=== PATIENT | male | born 1945 | race Caucasian/White ===

== ENCOUNTER 2017-01-08 06:51 | Day surgery (SDC) | payer MEDICARE, OTHER ==
[2017-01-05 12:21] VITALS: BMI 27.3
[~2017-01-08 06:51] MED LIST: LACTATED RINGERS 1,000 ML IV SCH
[2017-01-08 07:06] VITALS: TEMP 98
[2017-01-08] MEDS ORDERED: PROPOFOL 10 MG/ML 20 ML VIAL IV ONE (07:28)
--- NOTE | 2017-01-08 07:59 | P.OP ---
Date of Procedure: 01/08/17 Preoperative Diagnosis: Screening. Personal history of colon polyps tubular adenomas. Postoperative Diagnosis: Splenic flexure polyp. Moderate diverticulosis Procedure(s) Performed: Colonoscopy and snare polypectomy Implants: Anesthesia: MAC Surgeon: Jonathon Bustos Estimated Blood Loss (ml): 0 Pathology: other (Colon polyp) Condition: stable Disposition: same day Indications for Procedure: The patient is a 71-year-old white male who has a history of colon polyps over 10 years ago when his had his last colonoscopy. Otherwise asymptomatic. Follow -up was recommended. Informed consent was obtained. Operative Findings: Splenic flexure polyp about 3 mm in diameter. Moderate diverticulosis. Description of Procedure: With the patient in the left lateral position rectal digital examination was normal there were no palpable masses. No prostatic masses. The video colonoscope was inserted transanally and advanced all the way to the cecum which was entered without visualized. The mucosa were thoroughly examined. Findings there was a splenic flexure polyp sessile about 3-4 mm in diameter. This was removed completely with the snare cautery with good hemostasis. 2 moderate diverticulosis uncomplicated. The patient tolerated the procedure well without any evident complication. Recommendation high fiber diet the. Advised to chew his food well. Follow-up colonoscopy in about the 5 years. May resume his home meds. Position home.
[2017-01-08 08:13] VITALS: BP 157/72; PULSE 48; RESP 16
== END 2017-01-08 08:34 | disposition home or self-care (01) ==
LOC: ORWHC2ENDO 06:51
PROVIDERS: ATTEND Surgery
DX: Z12.11 Encounter for screening for malignant neoplasm of colon (principal); D12.3 Benign neoplasm of transverse colon; K57.30 Diverticulosis of large intestine without perforation or abscess without bleeding; Z86.010 Personal history of colon polyps; I10 Essential (primary) hypertension; E78.5 Hyperlipidemia, unspecified; K21.9 Gastro-esophageal reflux disease without esophagitis; F32.9 Major depressive disorder, single episode, unspecified; I25.10 Atherosclerotic heart disease of native coronary artery without angina pectoris; M19.90 Unspecified osteoarthritis, unspecified site; J44.9 Chronic obstructive pulmonary disease, unspecified; G47.30 Sleep apnea, unspecified; Z79.82 Long term (current) use of aspirin; Z79.1 Long term (current) use of non-steroidal anti-inflammatories (NSAID); Z79.899 Other long term (current) drug therapy
CPT/HCPCS: 88305; 45385; J2704

== ENCOUNTER → 2019-08-20 | Outpatient (CLI) | payer MEDICARE ==
--- NOTE | 2019-08-20 12:53 | CONS ---
CONSULTATION DATE OF SERVICE: 08/20/2019 A 74-year-old gentleman who has been re-evaluated in Sleep Center for treatment of obstructive sleep apnea-hypopnea syndrome. HISTORY OF PRESENT ILLNESS/SLEEP-WAKE EVALUATION: Patient has been diagnosed with obstructive sleep apnea about 15 years ago. Since that time, he is on treatment with CPAP. He continues to use CPAP equipment every night for the whole night. His machine is old. Sometimes he wakes up from sleep with nocturia in the morning. He wakes up tired. He may take one nap at 2 pm and that is with 4 or 5 caffeinated beverages which he drinks. No history of hypnagogic hallucinations, sleep paralysis or cataplexy. His usual sleep schedule from 10 p.m. to 6 am basically 7 days a week and no problem with falling asleep. No TV in bedroom. [place] Sleepiness Scale is 7. 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 PAST SURGICAL HISTORY: Right and left knee arthroscopy, umbilical hernia repair in 2000, left rotator cuff repair 2008, SLA repair in 2009. MEDICATIONS: Atenolol, atorvastatin, omeprazole, sertraline, lisinopril, multivitamins. SOCIAL HISTORY: Positive history of smoking on and off for about 50 years, quit smoking in March of 2019. Before quit smoking he decrease amount of cigarettes down to 1 pack a week. Alcohol consumption occasional. FAMILY HISTORY: Arthritis, snoring. REVIEW OF SYSTEMS: Tiredness and sleepiness during the day, even while using his CPAP equipment, taking naps. During physical exam, gentleman without distress, BP 147/71, HR 52, RR 16, height 5 foot 7-1/2 inches, weight 188 pounds. Body mass index 29.0, temperature 97.1, oxygen saturation at room air 98%. OROPHARYNX: Short distance between soft palate and posterior pharyngeal wall of wide pillars. Some restriction of nasal breathing. NECK: Supple, no JVD. Thyroid is not palpable. LUNGS: Clear to percussion and to auscultation. Good air exchange. No wheezing or rhonchi. HEART: S1, S2 regular. No murmurs, gallops, or rubs. ABDOMEN: Soft and nontender. Bowel sounds are present. No organomegaly appreciated. EXTREMITIES: No clubbing or cyanosis. RN SUPPORT SERVICES: Awake, alert, and oriented X3. Cranial nerves 2 to 7 intact. There is no fasciculation or atrophy. noted. No focal deficits observed. IMPRESSION: 1. Obstructive sleep apnea-hypopnea syndrome for 15 years. Patient continued to use his CPAP equipment with good compliance, but feels sleepy during the day and wakes up from sleep. Small oropharyngeal air space, CPAP unit is old. Last sleep study done about 15 years ago. 2. Hypertension. 3. Coronary artery disease. 4. History of arthritis. 5. Depression. 6. Gastroesophageal reflux disease. 7. Gout. 8. Hyperlipidemia. 9. History of anemia. 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 11.Status post bilateral knee arthroscopy in 1985. 12.Status post umbilical hernia repair 2000. 13.Status post left rotator cuff repair 2008. 14.Status post repair 2009. PLAN: 1. Repeat CPAP titration for evaluation of effective CPAP pressure at the present time. 2. Patient's CPAP unit needs to be replaced. 3. Sleep hygiene with regular time in bed for at least 7-1/2 to 8 hours. 4. No driving if feeling sleepiness. 5. We will maintain all necessary prescriptions for CPAP supplies. Thank you very much for referring this patient for evaluation. Sincerely, Ceasar Jasso MD, PhD, FAASM Diplomat of [employer] [employer] [employer] Chipping Machine Operator of [facility] [place] MMODL / PAMELA: [id number] /
== END | disposition home or self-care (01) ==
LOC: SLEEP 10:44
PROVIDERS: ATTEND Internal Medicine
DX: G47.33 Obstructive sleep apnea (adult) (pediatric) (principal); Z99.89 Dependence on other enabling machines and devices; I10 Essential (primary) hypertension; I25.10 Atherosclerotic heart disease of native coronary artery without angina pectoris; Z87.39 Personal history of other diseases of the musculoskeletal system and connective tissue; F32.9 Major depressive disorder, single episode, unspecified; K21.9 Gastro-esophageal reflux disease without esophagitis; M10.9 Gout, unspecified; E78.5 Hyperlipidemia, unspecified; Z86.2 Personal history of diseases of the blood and blood-forming organs and certain disorders involving the immune mechanism; Z87.19 Personal history of other diseases of the digestive system; Z98.890 Other specified postprocedural states; Z79.899 Other long term (current) drug therapy
CPT/HCPCS: 99211

== ENCOUNTER → 2019-12-08 | Outpatient (CLI) | payer MEDICARE | END | disposition home or self-care (01) | LOC: CPPFTMAIN 08:51 | PROVIDERS: ATTEND Internal Medicine Critical Care Medicine | DX: J44.9 Chronic obstructive pulmonary disease, unspecified (principal); R94.2 Abnormal results of pulmonary function studies | CPT/HCPCS: 94060; 94726; 94729 ==

== ENCOUNTER → 2020-05-13 | Outpatient (CLI) | payer MEDICARE ==
--- NOTE | 2020-05-13 19:54 | SFUN ---
SLEEP CENTER FOLLOW UP NOTE DATE OF SERVICE: 05/13/2020 HISTORY OF PRESENT ILLNESS: A 75-year-old gentleman who has been followed in Sleep Center for treatment of obstructive sleep apnea-hypopnea syndrome. Recently patient had CPAP titration and received new CPAP unit. Today is his first visit after receiving new CPAP machine. The patient is able to use machine every night without significant problems. He likes his new machine. No snoring. [place] Sleepiness Scale 14. I checked CPAP unit. Unit is in automatic regimen. Range of the pressure 5-13, average pressure 11.5 cm of water, usage 27/30 nights for more than 4 hours which is good compliance. Apnea-hypopnea index 5.6. CURRENT MEDICATIONS: Atenolol, atorvastatin, omeprazole, Sertraline, and lisinopril. PHYSICAL EXAM: Patient in no distress. BP 139/64, HR 62, RR 15, weight 190 pounds, height 5 feet 9 inches, temperature 98.1. Oxygen saturation at room air 97%. Oropharynx: Short distance between soft palate and posterior pharyngeal wall. NECK: Supple, no JVD. Thyroid is not palpable. LUNGS: Clear to percussion and to auscultation. Good air exchange. No wheezing or rhonchi. HEART: S1, S2 regular. No murmurs, gallops, or rubs. ABDOMEN: Soft and nontender. Bowel sounds are present. No organomegaly appreciated. EXTREMITIES: No clubbing or cyanosis. CIVIL ENGINEER LAND DEVELOPMENT: Awake, alert, and oriented X3. Cranial nerves 2 to 7 intact. There is no fasciculation or atrophy. noted. No focal deficits observed. IMPRESSION: 1. Obstructive sleep apnea-hypopnea syndrome. Patient demonstrated great compliance with treatment, benefitting from treatment. 2. Hypertension. 3. Coronary artery disease. 4. History of arthritis. 5. Status post total hysterectomy. 6. Depression. 7. Gastroesophageal reflux disease. 8. Gout. 9. Hyperlipidemia. 10.History of anemia. 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 12.Status post bilateral knee arthroscopic surgery. 13.Status post umbilical hernia repair. 14.Status post left rotator cuff repair. PLAN: 1. I adjusted range of automatic CPAP unit to the range of 5-15 cm of water. 2. Patient will continue to use PAP equipment every night for the whole night. 3. Sleep hygiene with regular time in bed for at least 7-1/2 to 8 hours. 4. Precautions related to driving. No driving if feeling sleepiness. 5. I will maintain all necessary prescription for PAP supplies including mask, tube, filters. 6. Watching weight. 7. No driving if feeling sleepiness. 8. Follow-up visit in 6 months or earlier if patient has any problems. Thank you very much for allowing me to participate in management of your patient. Sincerely, Ceasar Jasso MD, PhD, FAASM Diplomat of [employer] Content Analyst of [facility] [place] MMODL / IJN: [id number] /
== END | disposition home or self-care (01) ==
LOC: SLEEP 13:20
PROVIDERS: ATTEND Internal Medicine
DX: G47.33 Obstructive sleep apnea (adult) (pediatric) (principal); I10 Essential (primary) hypertension; I25.10 Atherosclerotic heart disease of native coronary artery without angina pectoris; F32.9 Major depressive disorder, single episode, unspecified; K21.9 Gastro-esophageal reflux disease without esophagitis; M10.9 Gout, unspecified; E78.5 Hyperlipidemia, unspecified; Z98.890 Other specified postprocedural states; Z86.2 Personal history of diseases of the blood and blood-forming organs and certain disorders involving the immune mechanism; Z99.89 Dependence on other enabling machines and devices; Z90.79 Acquired absence of other genital organ(s)

== ENCOUNTER → 2020-12-02 | Outpatient (CLI) | payer MEDICARE ==
--- NOTE | 2020-12-02 22:17 | SFUN ---
SLEEP CENTER FOLLOW UP NOTE DATE OF SERVICE: 12/02/2020. 75-year-old gentleman has been followed in Sleep Center for treatment of obstructive sleep apnea/hypopnea syndrome. Patient continued to use his CPAP equipment every night for the whole night. Sometimes feels slightly sleepy during the day. May take nap in the afternoon. [place] Sleepiness Scale today increased to 16. I checked his CPAP unit. Range of the pressure 5-15, I increased pressure during the previous visit. I increased range of the pressure during the previous visit. Average pressure 13.7, usage 22 out of 30 nights for more than 4 hours. Average is 6.9 hours per night. Leak is 26 L/minute which is slightly high and according to patient's , he occasionally open his mouth. Apnea-hypopnea index slightly increased to 7.4 and does include central apnea-hypopnea index 3.9. MEDICATIONS: Atenolol, atorvastatin, omeprazole, Sertraline, and lisinopril. PHYSICAL EXAMINATION: GENERAL: Patient in no distress. VITAL SIGNS: BP 108/51, HR 65, RR 12, height 5 feet 7 inches, weight 190.8, temperature 97.7, oxygen saturation at room air 97%. NECK: Supple, no JVD. Thyroid is not palpable. LUNGS: Clear to percussion and to auscultation. Good air exchange. No wheezing or rhonchi. HEART: S1, S2 regular. No murmurs, gallops, or rubs. ABDOMEN: Soft and nontender. Bowel sounds are present. No organomegaly appreciated. EXTREMITIES: No clubbing or cyanosis. AIR BREAKER OPERATOR: Awake, alert, and oriented X3. Cranial nerves 2 to 7 intact. There is no fasciculation or atrophy. noted. No focal deficits observed. IMPRESSION: 1. Obstructive sleep apnea-hypopnea syndrome. Some central apneas by reading from the machine. The patient occasionally opens his mouth. Great compliance with treatment benefitting from treatment. Apnea-hypopnea index 29, which is moderate obstructive sleep apnea, close to severe range. 2. Hypertension. 3. Coronary artery disease. 4. History of arthritis. 5. Status post total hysterectomy. 6. Hyperlipidemia. 7. Depression. 8. Gastroesophageal reflux disease. 9. Gout. 10.Status post hernia repair. 11.Hyperlipidemia. 12.History of anemia. 13.History of colon tumor. 14.Status post bilateral knee arthroscopic surgery. 15.Status post umbilical hernia repair. 16.Status post left rotator cuff repair. PLAN: 1. Prescription for chin strap. 2. I discussed with the patient how to adjust and explained how to adjust humidity in the CPAP unit and explain all recommendations regarding position of the machine, using distilled water to humidify and to be sure that everything is dry in the morning after he is using it. Make everything dry in the morning after usage. 1. Sleep hygiene with regular time in bed for at least 7-1/2 to 8 hours. 2. Precautions related to driving. No driving if feeling sleepiness. 3. I will maintain all necessary prescription for PAP supplies including mask, tube, filters. 4. Watching weight. 5. Follow-up visit in 6 months or earlier if patient has any problems. Thank you very much for allowing me to participate in management of your patient. Sincerely, Ceasar Jasso MD, PhD, FAASM Diplomat of [place] [employer] [employer] Pest Control Worker Helper of [facility] [place] MMODL / CONCEPCIONN: [id number] /
== END ==
LOC: SLEEP 09:55
PROVIDERS: ATTEND Internal Medicine
DX: G47.33 Obstructive sleep apnea (adult) (pediatric) (principal); I10 Essential (primary) hypertension; I25.110 Atherosclerotic heart disease of native coronary artery with unstable angina pectoris; M19.90 Unspecified osteoarthritis, unspecified site; K21.9 Gastro-esophageal reflux disease without esophagitis; M10.9 Gout, unspecified; D64.9 Anemia, unspecified; Z85.030 Personal history of malignant carcinoid tumor of large intestine; Z98.890 Other specified postprocedural states; Z99.81 Dependence on supplemental oxygen; Z79.899 Other long term (current) drug therapy; Z87.891 Personal history of nicotine dependence
CPT/HCPCS: 99211

== ENCOUNTER → 2024-07-25 | Outpatient (CLI) | payer MEDICARE ==
--- NOTE | 2024-07-25 15:44 | XR ---
EXAMINATION TYPE: XR chest 2V DATE OF EXAM: 07/25/2024 3:18 PM COMPARISON: None. CLINICAL INDICATION: Male, 79 years old with history of [id number] PRE OP, TECHNIQUE: XR chest 2V view(s) obtained. FINDINGS: The heart size is normal. The pulmonary vasculature is normal. The lungs are clear. IMPRESSION: 1. No acute pulmonary process. [facility], , 07/25/2024 3:42 PM
== END | disposition home or self-care (01) ==
LOC: RADXRYALE 15:04
PROVIDERS: ATTEND Family Medicine
DX: Z01.818 Encounter for other preprocedural examination (principal)
CPT/HCPCS: 71046

== ENCOUNTER → 2024-10-24 | Outpatient (CLI) | payer MEDICARE ==
--- NOTE | 2024-10-26 15:50 | MR ---
EXAMINATION TYPE: MR ankle RT wo con DATE OF EXAM: 10/24/2024 4:50 PM COMPARISON: None. CLINICAL INDICATION: Male, 79 years old with history of M66.371 SPONTANEOUS RUPTURE OF FLEXOR TENDONS , RIG; PHH, Right ankle pain, limited movement, and swelling for about half a week TECHNIQUE: Multi planar, multi sequence imaging was performed. No Gadolinium given. IV Contrast: mL (None.) FINDINGS: LIGAMENTS AND TENDONS: The anterior talofibular ligament, calcaneofibular ligament, posterior talofi bular ligament, tibiofibular ligaments, and deltoid ligament are intact. The anterior compartment, p osterior compartment, lateral compartment, and medial compartment tendons have a normal appearance. The portion of the plantar fascia seen is unremarkable. OSSEOUS STRUCTURES AND CARTILAGE: High PD signal involving the inferior anterior talus and the anteri or calcaneus whether might be low signal nondisplaced fracture line The talar dome has a normal morp hology and signal intensity. The sinus tarsus has a normal signal intensity. IMPRESSION: 1. Bony edema involving the anterior calcaneus suggesting nondisplaced fracture with associated cont usion of the talus. No other discrete fracture visualized. Correlate with history of trauma. Soft tis severo edema throughout the foot is also present. 2. No definitive evidence to suggest tendon or ligament injury. [facility], , 10/26/2024 3:48 PM
== END | disposition home or self-care (01) ==
LOC: RADMRIMAIN 15:55
PROVIDERS: ATTEND Podiatrist
DX: M66.371 Spontaneous rupture of flexor tendons, right ankle and foot (principal); R60.0 Localized edema